=== PATIENT | female | born 1970 | race Caucasian/White ===

== ENCOUNTER 2016-08-10 19:47 | Emergency (ER) | payer BC, OTHER ==
[~2016-08-10] VITALS: Ht 154.9 cm; Wt 59.0 kg
[~2016-08-10 19:47] MED LIST: ALBU1.25 NEB; ALPR0.25 PO; CETI10TA22 PO; FLUT1DIS3 IH; LEVO500T38 PO; PRED-220 PO; PRED20TA PO; TRIA10.8 NS; VENTOLIN HFA18 GM INH; [UNRECOGNIZED DRUG - REMARK]; advair
[2016-08-10] MEDS ORDERED: IPRATRPIUM/ALBUTEROL 0.5/2.5MG 3 ML NEBU. NEB ONE (20:45)
[2016-08-10] MEDS ORDERED: PREDNISONE 20 MG TABLET PO ONE (20:45)
[2016-08-10 20:49] VITALS: BP 115/77
--- NOTE | 2016-08-10 20:59 | PHYS DOC ---
Past Medical History Past Medical History: Anxiety, COPD, Other Additional Past Medical Histor: CHRONS Past Surgical History: , Tubal ligation Alcohol Use: None Drug Use: None Adult General Chief Complaint Chief Complaint: SHORTNESS OF BREATH HPI HPI Patient is a 45 year old female who presents with COPD exacerbation. Patient reports she became short of breath and wheezing tonight after cooking some ceballos. She does have continued coughing from earlier this week. Patient saw her yard manager recently, was prescribed a prednisone taper which she has not yet started. She did use some albuterol and Valium at home, and says she is feeling much better and is ready to go home at this time. She denies any chest pain or fever. No other acute complaints. Review of Systems Review of Systems Constitutional: Denies fever or chills Eyes: Denies change in visual acuity or eye pain HENT: Denies nasal congestion or sore throat Respiratory: Cough, shortness of breath, wheezing Cardiovascular: Denies chest pain GI: Denies abdominal pain, nausea, vomiting, bloody stools or diarrhea : Denies dysuria or hematuria Musculoskeletal: Denies back pain or joint pain Integument: Denies rash or skin lesions Neurologic: Denies headache, focal weakness or sensory changes Current Medications Current Medications Current Medications Medications (Trade) Dose Ordered Sig/Lucila Start Time Stop Time Status Last Admin Dose Admin Albuterol/ Ipratropium (Duoneb) 3 ml 1X ONCE 08/10/16 20:45 08/10/16 20:46 DC 08/10/16 20:52 3 ML Prednisone (Prednisone) 60 mg 1X ONCE 08/10/16 20:45 08/10/16 20:46 DC 08/10/16 20:54 60 MG Allergies Allergies Allergies Coded Allergies Type Severity Reaction Last Updated Verified Penicillins Allergy Intermediate 12/24/15 Yes Physical Exam Physical Exam Constitutional: Well developed, well nourished, no acute distress, non-toxic appearance HENT: Normocephalic, atraumatic, bilateral external ears normal Neck: Normal range of motion, no stridor Cardiovascular: Heart rate normal, regular rhythm, no murmur Lungs & Thorax: Tight, minimal diffuse expiratory wheezing Abdomen: Bowel sounds normal, soft, non-distended, no TTP Skin: Warm, dry, no erythema, no rash Extremities: No obvious deformity, no edema Neurologic: Alert and oriented X 3, no gross deficits noted Psychologic: Affect normal, judgement normal, mood normal Current Patient Data Vital Signs Vital Signs Date Time Temp Pulse Resp B/P Pulse Ox O2 Delivery O2 Flow Rate FiO2 08/10/16 20:57 96 Room Air 08/10/16 20:49 101 22 115/77 08/10/16 20:00 97.7 97.7 EKG EKG EKG (my read): sinus rhythm, rate 89, normal axis, intervals wnl, no acute ST/T changes Radiology/Procedures Radiology/Procedures [] Course & Med Decision Making Course & Med Decision Making Pertinent Labs and Imaging studies reviewed. (See chart for details) Patient is 45 year old female who presents with apparent COPD exacerbation. Patient says she feels better after meds at home and is ready to go home at this time. However, I would like to give her breathing treatment and dose of prednisone before syndrome underwent. EKG ordered, okay per my read. Will plan discharge home after breathing treatment and steroids given. Patient already has breathing treatments at home as well as prescription for prednisone taper given to her by her yard manager. Given instructions for outpatient follow-up and return precautions. Dragon Disclaimer Dragon Disclaimer This electronic medical record was generated, in whole or in part, using a voice recognition dictation system. Departure Departure Impression: Primary Impression: COPD exacerbation Disposition: HOME, SELF-CARE Condition: IMPROVED Referrals: UNKNOWN PCP NAME (PCP) Patient Instructions: Chronic Obstructive Pulmonary Disease Exacerbation Additional Instructions: Thank you for allowing us to provide care today in the Emergency Department. Continue to use your breathing treatments at home. Also, tomorrow start taking the prednisone prescription that you were already prescribed by your yard manager. Schedule a follow up appointment with your primary care doctor and your yard manager. Return promptly to the Emergency Department if you develop any new or concerning symptoms. EMMA RODRIGUEZ MD Aug 10, 2016 20:59
--- NOTE | 2016-08-11 02:57 | EKG ---
[facility] [address] [place] [address] Test Date: 2016-08-10 Test Time: 20:14:11 Pat Name: JHON LOMELI Department: Room: Gender: F Tube Drawer: : 1970 Requested By: EMMA RODRIGUEZ Order Number: [id number] Reading MD: Measurements Intervals [place] Rate: 89 P: 0 MO: 140 QRS: 80 QRSD: 74 T: 74 QT: 368 QTc: 449 Interpretive Statements SINUS RHYTHM LOW LIMB LEAD VOLTAGE NO SPECIFIC ECG ABNORMALITIES RI6.01 No previous ECG available for comparison
== END 2016-08-10 21:07 | disposition home or self-care (01) ==
LOC: ER 19:47
DX: J44.1 Chronic obstructive pulmonary disease with (acute) exacerbation (principal); K50.90 Crohn's disease, unspecified, without complications; Z88.0 Allergy status to penicillin
CPT/HCPCS: 93005; 94250; 94640; 99283; J7512; J7620